=== PATIENT | male | born 1985 | race African-American/Black ===

== ENCOUNTER 2021-06-15 20:25 | Inpatient (IN) | payer MEDICAID ==
[~2021-06-15] VITALS: Ht 175.3 cm; Wt 80.0 kg
[2021-06-15 21:05] LABS: BASOPHILS % (AUTO) 0.6 % (0.0-2.0); EOSINOPHILS % (AUTO) 2.3 % (1.0-6.0); HEMATOCRIT 46.1 % (41-53); HEMOGLOBIN 14.2 g/dL (13.5-17.5); LYMPHOCYTES # (AUTO) 2.1 K/uL (1.0-4.8); LYMPHOCYTES % (AUTO) 16.9 % (22.0-44.0); MEAN CORPUSCULAR HGB CONC 30.8 G/dL (31.0-37.0); MEAN CORPUSCULAR VOLUME 68 fL (80-100); MONOCYTES # (AUTO) 0.9 K/uL (0.1-1.0); MONOCYTES % (AUTO) 7.2 % (2.0-9.0); PLATELET COUNT (AUTO) 138 K/uL (150-450); RED BLOOD CELL COUNT(AUTO) 6.76 MIL/uL (4.50-5.90); RED CELL DISTRIBUTION WIDTH 17.5 % (11.5-14.5)
[2021-06-15 21:15] LABS: ANION GAP 9 mmol/L (8-16); CALCIUM, TOTAL 9.2 mg/dL (8.8-10.5); CARBON DIOXIDE 29 mmol/L (22-29); CHLORIDE 105 mmol/L (98-107); CREATININE 1.17 mg/dL (0.60-1.30); GLOMERULAR FILTR. RATE CALC > 60 mL/min (>60); GLUCOSE,RANDOM 75 mg/dL (70-110); POTASSIUM 3.7 mmol/L (3.5-5.1); SODIUM SERUM 143 mmol/L (136-145); UREA NITROGEN, BLOOD 16 mg/dL (7-18)
[2021-06-15 21:21] LABS: ALANINE AMINOTRANSFERASE 36 U/L (12-78); ALKALINE PHOSPHATASE 101 U/L (46-116); ASPARTATE AMINOTRANSFERASE 18 U/L (15-37); BILIRUBIN,TOTAL 0.6 mg/dL (0.1-1.0); TOTAL PROTEIN, SERUM 7.7 g/dL (6.4-8.2)
[2021-06-15 21:39] LABS: COVID AG,FIA SOURCE NASOPHARYNGEAL
[2021-06-15] MEDS ORDERED: ZOLPIDEM TARTRATE 10 MG TABLET PO PRN (22:30)
[2021-06-15] MEDS ORDERED: ChlorproMAZINE HCL 100 MG TABLET PO PRN (22:30)
[2021-06-16] MEDS: CloNIDine HCL 0.1 MG TABLET PO SCH ×2 (08:39→16:24)
[2021-06-16 08:52] VITALS: BP 144/101
[2021-06-16] MEDS ORDERED: ARIPiprazole 5 MG TABLET PO SCH (09:00)
[2021-06-16 09:05] LABS: CHOL/HDL RATIO 5.1 (4.2-7.3)
[2021-06-16] MEDS ORDERED: OLANZapine 5 MG RAPDIS TABLET PO PRN (11:45)
[2021-06-16] MEDS ORDERED: GuaiFENesin/D-METHORPHAN [SUGAR-FREE] 200-20MG/10 ML SYRUP UDCUP PO PRN (11:45)
[2021-06-16] MEDS ORDERED: HydrOXYzine PAMOATE 50 MG CAPSULE PO PRN (11:45)
[2021-06-16] MEDS ORDERED: PROMETHAZINE HCL 25 MG TABLET PO PRN (11:45)
[2021-06-16] MEDS ORDERED: MAGNESIUM HYDROXIDE SUSPENSION 30 ML UDCUP PO PRN (11:45)
[2021-06-16] MEDS ORDERED: TUBERCULIN, PURIFIED PROTEIN DERIVATIVE 5 TU/0.1 ML SYRINGE ID ONE (11:45)
[2021-06-16] MEDS ORDERED: LOPERAMIDE HCL 2 MG CAPSULE PO PRN (11:45)
[2021-06-16] MEDS ORDERED: MAG HYDROX/AL HYDROX/SIMETH ES 30 ML SUSPENSION UDCUP PO PRN (11:45)
[2021-06-16] MEDS ORDERED: ACETAMINOPHEN 325 MG TABLET PO PRN (11:45)
[2021-06-16] MEDS: THIAMINE 100 MG TABLET PO SCH (16:24)
[2021-06-16 16:26] VITALS: BP 121/82
[2021-06-16] MEDS: OLANZapine 5 MG RAPDIS TABLET PO SCH (20:05)
[2021-06-16] MEDS: MIRTAZAPINE 15 MG TABLET PO SCH (20:05)
[2021-06-16] MEDS: MELATONIN 5 MG TABLET PO SCH (20:05)
[2021-06-17] MEDS: FOLIC ACID 1 MG TABLET PO SCH (08:30)
[2021-06-17] MEDS: MULTIVITAMINS WITH MINERALS, THERAPEUTIC TABLET PO SCH (08:30)
[2021-06-17] MEDS: NALTREXONE HCL 50 MG TABLET PO SCH (08:30)
[2021-06-17] MEDS: OMEGA-3/DHA/EPA/FISH OIL 1,000 MG CAPSULE PO SCH (08:30)
[2021-06-17] MEDS: CloNIDine HCL 0.1 MG TABLET PO SCH ×2 (08:30→16:19)
[2021-06-17] MEDS: THIAMINE 100 MG TABLET PO SCH ×2 (08:30→16:19)
[2021-06-17 08:43] VITALS: BP 122/87
[2021-06-17 16:30] VITALS: BP 113/70
[2021-06-17] MEDS: MIRTAZAPINE 15 MG TABLET PO SCH (20:25)
[2021-06-17] MEDS: MELATONIN 5 MG TABLET PO SCH (20:25)
[2021-06-17] MEDS: OLANZapine 5 MG RAPDIS TABLET PO SCH (20:25)
[2021-06-18] MEDS: FOLIC ACID 1 MG TABLET PO SCH (08:01)
[2021-06-18] MEDS: MULTIVITAMINS WITH MINERALS, THERAPEUTIC TABLET PO SCH (08:01)
[2021-06-18] MEDS: OMEGA-3/DHA/EPA/FISH OIL 1,000 MG CAPSULE PO SCH (08:01)
[2021-06-18] MEDS: NALTREXONE HCL 50 MG TABLET PO SCH (08:01)
[2021-06-18] MEDS: THIAMINE 100 MG TABLET PO SCH ×2 (08:01→16:20)
[2021-06-18] MEDS: CloNIDine HCL 0.1 MG TABLET PO SCH ×2 (08:01→17:25)
[2021-06-18 08:51] VITALS: BP 111/73
[2021-06-18 16:00] VITALS: BP 106/65
[2021-06-18 17:23] VITALS: BP 115/76
[2021-06-18] MEDS: MELATONIN 5 MG TABLET PO SCH (20:11)
[2021-06-18] MEDS: OLANZapine 5 MG RAPDIS TABLET PO SCH (20:11)
[2021-06-18] MEDS: MIRTAZAPINE 15 MG TABLET PO SCH (20:11)
[2021-06-19] MEDS: FOLIC ACID 1 MG TABLET PO SCH (08:33)
[2021-06-19] MEDS: OMEGA-3/DHA/EPA/FISH OIL 1,000 MG CAPSULE PO SCH (08:33)
[2021-06-19] MEDS: THIAMINE 100 MG TABLET PO SCH ×2 (08:33→16:22)
[2021-06-19] MEDS: MULTIVITAMINS WITH MINERALS, THERAPEUTIC TABLET PO SCH (08:33)
[2021-06-19] MEDS: NALTREXONE HCL 50 MG TABLET PO SCH (08:34)
[2021-06-19] MEDS: CloNIDine HCL 0.1 MG TABLET PO SCH ×2 (08:34→16:23)
[2021-06-19 08:53] VITALS: BP 112/75
[2021-06-19 10:59] LABS: HEMOGLOBIN A1C 5.7 % (3.8-5.6)
[2021-06-19 11:19] LABS: FREE T4 (FREE THYROXINE) 1.05 ng/dL (0.76-1.46); THYROID STIMULATING HORMONE 3.14 uIU/mL (0.36-3.74)
[2021-06-19 17:11] VITALS: BP 125/85
[2021-06-19] MEDS: MIRTAZAPINE 15 MG TABLET PO SCH (20:28)
[2021-06-19] MEDS: MELATONIN 5 MG TABLET PO SCH (20:28)
[2021-06-19] MEDS: OLANZapine 5 MG RAPDIS TABLET PO SCH (20:28)
[2021-06-19] MEDS: OLANZapine 10 MG RAPDIS TABLET PO SCH (21:00)
[2021-06-19] MEDS: LORazepam 0.5 MG TABLET PO SCH (21:00)
[2021-06-20 08:24] VITALS: BP 139/88
[2021-06-20] MEDS: FOLIC ACID 1 MG TABLET PO SCH (09:54)
[2021-06-20] MEDS: THIAMINE 100 MG TABLET PO SCH ×2 (09:54→16:18)
[2021-06-20] MEDS: LORazepam 1 MG TABLET PO PRN ×2 (09:54→13:30)
[2021-06-20] MEDS: OMEGA-3/DHA/EPA/FISH OIL 1,000 MG CAPSULE PO SCH (09:54)
[2021-06-20] MEDS: MULTIVITAMINS WITH MINERALS, THERAPEUTIC TABLET PO SCH (09:54)
[2021-06-20] MEDS: LORazepam 0.5 MG TABLET PO SCH ×4 (09:58→20:28)
[2021-06-20] MEDS: CloNIDine HCL 0.1 MG TABLET PO SCH ×2 (09:59→16:19)
[2021-06-20] MEDS: NALTREXONE HCL 50 MG TABLET PO SCH (09:59)
[2021-06-20 16:00] VITALS: BP 109/72
[2021-06-20] MEDS: MELATONIN 5 MG TABLET PO SCH (20:29)
[2021-06-20] MEDS: OLANZapine 10 MG RAPDIS TABLET PO SCH (20:29)
[2021-06-20] MEDS: MIRTAZAPINE 15 MG TABLET PO SCH ×2 (20:29→21:00)
[2021-06-21 08:11] VITALS: BP 124/84
[2021-06-21] MEDS: OMEGA-3/DHA/EPA/FISH OIL 1,000 MG CAPSULE PO SCH (10:31)
[2021-06-21] MEDS: MULTIVITAMINS WITH MINERALS, THERAPEUTIC TABLET PO SCH (10:31)
[2021-06-21] MEDS: FOLIC ACID 1 MG TABLET PO SCH (10:31)
[2021-06-21] MEDS: NALTREXONE HCL 50 MG TABLET PO SCH (10:31)
[2021-06-21] MEDS: LORazepam 0.5 MG TABLET PO SCH ×4 (10:31→20:45)
[2021-06-21] MEDS: THIAMINE 100 MG TABLET PO SCH ×2 (10:31→16:06)
[2021-06-21] MEDS: CloNIDine HCL 0.1 MG TABLET PO SCH ×2 (10:32→16:06)
[2021-06-21 16:34] VITALS: BP_SYST 112; BP_SYST 126; BP_DIAS 65; BP_DIAS 81
[2021-06-21] MEDS: OLANZapine 10 MG RAPDIS TABLET PO SCH (20:44)
[2021-06-21] MEDS: MIRTAZAPINE 15 MG TABLET PO SCH (20:45)
[2021-06-21] MEDS: MELATONIN 5 MG TABLET PO SCH (20:48)
[2021-06-22] MEDS: OMEGA-3/DHA/EPA/FISH OIL 1,000 MG CAPSULE PO SCH (08:13)
[2021-06-22] MEDS: THIAMINE 100 MG TABLET PO SCH ×2 (08:13→16:34)
[2021-06-22] MEDS: SIMVASTATIN 10 MG TABLET PO SCH (08:13)
[2021-06-22] MEDS: MULTIVITAMINS WITH MINERALS, THERAPEUTIC TABLET PO SCH (08:13)
[2021-06-22] MEDS: FOLIC ACID 1 MG TABLET PO SCH (08:14)
[2021-06-22] MEDS: CloNIDine HCL 0.1 MG TABLET PO SCH ×2 (08:14→16:34)
[2021-06-22] MEDS: LORazepam 0.5 MG TABLET PO SCH ×4 (08:14→20:08)
[2021-06-22] MEDS: NALTREXONE HCL 50 MG TABLET PO SCH (08:14)
[2021-06-22 08:52] VITALS: BP 110/75
[2021-06-22 09:26] LABS: COVID AG,FIA SOURCE NASAL SWAB
[2021-06-22 16:37] VITALS: BP 132/80
[2021-06-22] MEDS ORDERED: CLON0.1T2 PO (18:40)
[2021-06-22] MEDS ORDERED: LORA-999 PO (18:40)
[2021-06-22] MEDS ORDERED: OLAN10TA26 PO (18:40)
[2021-06-22] MEDS ORDERED: MELA5TAB3 PO (18:40)
[2021-06-22] MEDS ORDERED: OMEG-135 PO (18:40)
[2021-06-22] MEDS: MIRTAZAPINE 15 MG TABLET PO SCH (20:07)
[2021-06-22] MEDS: OLANZapine 10 MG RAPDIS TABLET PO SCH (20:08)
[2021-06-22] MEDS: MELATONIN 5 MG TABLET PO SCH ×2 (21:00→21:31)
[2021-06-23] MEDS: LORazepam 0.5 MG TABLET PO SCH ×2 (08:55→13:19)
[2021-06-23] MEDS: OMEGA-3/DHA/EPA/FISH OIL 1,000 MG CAPSULE PO SCH (08:55)
[2021-06-23] MEDS: CloNIDine HCL 0.1 MG TABLET PO SCH (08:55)
[2021-06-23] MEDS: MULTIVITAMINS WITH MINERALS, THERAPEUTIC TABLET PO SCH (08:56)
[2021-06-23] MEDS: THIAMINE 100 MG TABLET PO SCH (08:56)
[2021-06-23] MEDS: FOLIC ACID 1 MG TABLET PO SCH (08:56)
[2021-06-23] MEDS: SIMVASTATIN 10 MG TABLET PO SCH (08:56)
[2021-06-23] MEDS: NALTREXONE HCL 50 MG TABLET PO SCH (08:58)
[2021-06-23 09:00] VITALS: BP 115/80
[2021-06-23] MEDS ORDERED: SIMV-259 PO (15:06)
== END 2021-06-23 15:00 | disposition home or self-care (01) | DRG 750 ==
LOC: EMS 20:25 → 3EC 23:06
PROVIDERS: ADMIT Psychiatry & Neurology Psychiatry; ATTEND Psychiatry & Neurology Psychiatry
DX: F25.9 Schizoaffective disorder, unspecified (principal); F29 Unspecified psychosis not due to a substance or known physiological condition; F19.10 Other psychoactive substance abuse, uncomplicated; F32.9 Major depressive disorder, single episode, unspecified; Z20.822 Contact with and (suspected) exposure to COVID-19; F41.9 Anxiety disorder, unspecified; F84.0 Autistic disorder; G47.00 Insomnia, unspecified; K59.00 Constipation, unspecified
CPT/HCPCS: 80053; 80061; 83036; 84439; 84443; 85025; 86592; 99285; A9575; G0480